=== PATIENT | male | born 1940 | race Caucasian/White ===

== ENCOUNTER 2024-10-13 17:29 | Emergency (ER) | payer MEDICARE, BC ==
[~2024-10-13] VITALS: Ht 182.9 cm; Wt 108.9 kg
== END 2024-10-13 19:47 | disposition home or self-care (01) ==
LOC: ER 17:29
DX: I44.1 Atrioventricular block, second degree (principal); I10 Essential (primary) hypertension; E11.9 Type 2 diabetes mellitus without complications
CPT/HCPCS: 93005; 93010; 99284-25